=== PATIENT | female | born 1945 | race Caucasian/White ===

== ENCOUNTER 2017-01-14 13:37 | Emergency (ER) | payer MEDICARE, OTHER ==
[~2017-01-14] VITALS: Ht 165.1 cm; Wt 65.8 kg
[2017-01-14 13:51] LABS: BASOPHILS # (AUTO) 0.2 /CMM (0.0-0.2); BASOPHILS % (AUTO) 2.7 % (0.0-2.0); EOSINOPHILS # (AUTO) 0.1 /CMM (0.0-0.7); EOSINOPHILS % (AUTO) 1.3 % (0.0-6.0); HEMATOCRIT 43 % (33-45); HEMOGLOBIN 14.4 g/dL (11.5-14.8); LYMPHOCYTES # (AUTO) 2.8 /CMM (0.8-4.8); LYMPHOCYTES % (AUTO) 30.8 % (20.0-44.0); MEAN CORPUSCULAR HEMOGLOBIN 29 PG (26.0-33.0); MEAN CORPUSCULAR HGB CONC 34 g/dl (31.0-36.0); MEAN CORPUSCULAR VOLUME 87 fL (82-100); MONOCYTES # (AUTO) 0.5 /CMM (0.1-1.30); MONOCYTES % (AUTO) 5.3 % (2.0-12.0); NEUTROPHILS # (AUTO) 5.5 /CMM (1.8-8.9); NEUTROPHILS % (AUTO) 59.9 % (43.0-81.0); PLATELET COUNT (AUTO) 228 /CMM (150-450); RED BLOOD CELL COUNT(AUTO) 4.89 MIL/uL (4.0-5.2); WHITE BLOOD COUNT (AUTO) 9.1 K/uL (4.3-11.0)
[2017-01-14] MEDS ORDERED: ASPIRIN 325 MG TABLET ONE (13:58)
[2017-01-14] MEDS ORDERED: NITROGLYCERIN PACKET 1 GM PACKET ONE (13:59)
[2017-01-14] MEDS ORDERED: NITROGLYCERIN PACKET 1 GM PACKET TD ONE (14:00)
[2017-01-14] MEDS ORDERED: ASPIRIN 325 MG TABLET PO ONE (14:00)
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
[2017-01-14 14:01] LABS: CALCIUM, SERUM 9.6 mg/dL (8.5-10.1); CREATININE 0.8 mg/dL (0.6-1.3); POTASSIUM 3.8 mmol/L (3.5-5.1)
[2017-01-14 14:05] LABS: INR 1.03 (0.87-1.13); PROTHROMBIN TIME 10.7 SECS (9.5-12.7)
[2017-01-14 14:07] LABS: ALBUMIN 3.8 g/dL (3.4-5.0); BILIRUBIN,DIRECT 0.1 mg/dL (0.0-0.2); BILIRUBIN,TOTAL 0.4 mg/dL (0.2-1.0); TOTAL PROTEIN, SERUM 8.1 g/dL (6.4-8.2)
[2017-01-14 14:09] LABS: TROPONIN I 0.252 ng/mL (0.00-0.056)
[2017-01-14] MEDS ORDERED: FLUT1DIS3 INH (14:47)
[2017-01-14] MEDS ORDERED: DRON400T2 PO (14:47)
[2017-01-14] MEDS ORDERED: DEXL60CA3 PO (14:47)
[2017-01-14] MEDS ORDERED: NEBI5TAB8 PO (14:47)
[2017-01-14] MEDS ORDERED: VORT10TA PO (14:47)
[2017-01-14] MEDS ORDERED: LIPA1CAP15 PO (14:47)
[2017-01-14] MEDS ORDERED: ICOS1CAP PO (14:47)
[2017-01-14] MEDS ORDERED: VALS1TAB4 PO (14:47)
[2017-01-14] MEDS ORDERED: EDARBYCLOR PO (14:47)
[2017-01-14] MEDS ORDERED: FURO20TA4 PO (14:47)
[2017-01-14] MEDS ORDERED: ATOR10TA PO (14:47)
--- NOTE | 2017-01-14 15:05 | NUR ---
PT C/O MENDOZA WORSENING. OFFERED PAIN MEDICATION; PT REFUSES.
--- NOTE | 2017-01-14 15:51 | NUR ---
Patient does not wish to proceed with medical care recommended by Dr. WHITE. With daughter as gore inserter, patient given information related to possible complications, up to and including , which could occur as a result of leaving the hospital at this time. Patient verbalizes understanding of risks involved due to leaving against medical advice. Patient has signed AMA form.
[2017-01-14 15:57] VITALS: BP 134/75
[2017-01-14] MEDS ORDERED: DOCUSATE SODIUM 100 MG CAPSULE PO PRN (16:00)
[2017-01-14] MEDS ORDERED: MORPHINE SULFATE INJ 2 MG/ML DISP.SYRIN IV PRN (16:00)
[2017-01-14] MEDS ORDERED: ATORVASTATIN 10 MG TABLET PO SCH (16:00)
[2017-01-14] MEDS ORDERED: CLOPIDOGREL BISULFATE 75 MG TABLET PO ONE (16:00)
[2017-01-14] MEDS ORDERED: FUROSEMIDE 20 MG TABLET PO SCH (16:00)
[2017-01-14] MEDS ORDERED: NITROGLYCERIN 0.4 MG/TAB BOTTLE SL PRN (16:00)
[2017-01-14] MEDS ORDERED: Medication Not On Formulary EA (Lipase/Protease/Amylase (Creon Dr 36,000 Units Capsule) PO SCH (16:00)
[2017-01-14] MEDS ORDERED: ONDANSETRON HCL/PF 4 MG/2 ML VIAL IVP PRN (16:00)
[2017-01-14] MEDS ORDERED: CARVEDILOL 6.25 MG TABLET PO SCH (16:00)
[2017-01-14] MEDS ORDERED: Medication Not On Formulary EA (Nebivolol Hcl (Bystolic) 5 MG) PO SCH (16:00)
--- NOTE | 2017-01-14 16:09 | NUR ---
PT AMBULATED FROM ER WITH STEADY GAIT. DECISION TO LEAVE AMA REVIEWED WITH PT AND DAUGHTER PRIOR TO LEAVING. ALL DIAGNOSTIC RESULTS PRINTED AND GIVEN TO PT.
[2017-01-14] MEDS ORDERED: Medication Not On Formulary EA (Icosapent Ethyl (Vascepa) 1 GM) PO SCH (17:00)
[2017-01-14] MEDS ORDERED: FLUTICASONE/SALMETEROL DISKUS IH SCH (17:00)
[2017-01-14] MEDS ORDERED: DRONEDARONE HYDROCHLORIDE 400 MG TABLET PO SCH (17:00)
== END 2017-01-14 16:26 | disposition left against medical advice (07) ==
LOC: ER 13:38
DX: R07.89 Other chest pain (principal); I10 Essential (primary) hypertension; I70.0 Atherosclerosis of aorta; J45.909 Unspecified asthma, uncomplicated; M79.671 Pain in right foot; Z88.6 Allergy status to analgesic agent; Z79.82 Long term (current) use of aspirin; Z95.0 Presence of cardiac pacemaker; Z96.89 Presence of other specified functional implants
CPT/HCPCS: 36415; 71010-TC; 73630-TC; 80048-TC; 80076-TC; 84484-TC; 85025-TC; 85730-TC; A4606; Z7610

== ENCOUNTER 2019-12-28 09:49 | Emergency (ER) | payer MEDICARE, OTHER ==
[~2019-12-28] VITALS: Ht 167.6 cm; Wt 76.7 kg
[~2019-12-28 09:49] MED LIST: ATOR10TA PO; DEXL60CA3 PO; DRON400T2 PO; EDARBYCLOR PO; FLUT1DIS3 INH; FURO20TA4 PO; ICOS1CAP PO; LIPA1CAP15 PO; NEBI5TAB8 PO; VALS1TAB4 PO; VORT10TA PO
--- NOTE | 2019-12-28 09:50 | NUR ---
PT BIB SELF C/O MID EPIGASTRIC PAIN STARTED THIS MORNING , PT IS AAOX4, NOT IN RESPIRATORY DISTRESS, HOOKED TO STUDENT SUCCESS ADVISOR, KEPT RESTED AND COMFORTABLE, WILL CONTINUE TO MONITOR.
--- NOTE | 2019-12-28 10:10 | NUR ---
PT SEEN AND EXAMINED BY .
[2019-12-28] MEDS ORDERED: ASPI-1152 PO (10:11)
[2019-12-28] MEDS ORDERED: MIRT15TA7 PO (10:11)
[2019-12-28] MEDS ORDERED: HYDR-4077 PO (10:11)
[2019-12-28] MEDS ORDERED: AMLO10TA7 PO (10:11)
[2019-12-28] MEDS ORDERED: TOLT4CAP14 PO (10:11)
[2019-12-28] MEDS ORDERED: ROSU5TAB13 PO (10:11)
[2019-12-28] MEDS ORDERED: POTA10CA43 PO (10:11)
[2019-12-28] MEDS ORDERED: CLON0.1T PO (10:11)
[2019-12-28] MEDS ORDERED: NITR0.4T48 PO (10:11)
[2019-12-28] MEDS ORDERED: FERR325T6 PO (10:11)
[2019-12-28] MEDS ORDERED: FLUT1BLS12 INH (10:11)
[2019-12-28] MEDS ORDERED: PANT40TA4 PO (10:11)
[2019-12-28] MEDS ORDERED: ALPR1TAB7 PO (10:11)
[2019-12-28] MEDS ORDERED: CYAN10006 IM (10:11)
[2019-12-28] MEDS ORDERED: ERGO500014 PO (10:11)
[2019-12-28] MEDS ORDERED: MONT10TA22 PO (10:11)
[2019-12-28] MEDS ORDERED: EDARBYCLOR PO (10:12)
[2019-12-28] MEDS ORDERED: ONDANSETRON HCL/PF 4 MG/2 ML VIAL ONE (10:19)
[2019-12-28] MEDS ORDERED: MORPHINE SULFATE INJ 2 MG/ML DISP.SYRIN ONE (10:19)
[2019-12-28 10:20] LABS: BASOPHILS # (AUTO) 0.1 /CMM (0.0-0.2); BASOPHILS % (AUTO) 1.3 % (0.0-2.0); EOSINOPHILS % (AUTO) 1.8 % (0.0-6.0); HEMATOCRIT 44 % (33-45); HEMOGLOBIN 14.7 g/dL (11.5-14.8); LYMPHOCYTES # (AUTO) 2.2 /CMM (0.8-4.8); LYMPHOCYTES % (AUTO) 34.3 % (20.0-44.0); MEAN CORPUSCULAR HGB CONC 34 g/dl (31.0-36.0); MEAN CORPUSCULAR VOLUME 89 fL (82-100); MONOCYTES # (AUTO) 0.5 /CMM (0.1-1.30); MONOCYTES % (AUTO) 8.2 % (2.0-12.0); NEUTROPHILS # (AUTO) 3.4 /CMM (1.8-8.9); NEUTROPHILS % (AUTO) 54.4 % (43.0-81.0); PLATELET COUNT (AUTO) 206 /CMM (150-450); RED BLOOD CELL COUNT(AUTO) 4.89 MIL/uL (4.0-5.2); WHITE BLOOD COUNT (AUTO) 6.3 K/uL (4.3-11.0)
--- NOTE | 2019-12-28 10:20 | NUR ---
PT IV LINE ESTABLISHED BLOOD DRAWN AND SENT TO LAB.
[2019-12-28] MEDS: MORPHINE SULFATE INJ 2 MG/ML DISP.SYRIN IV ONE (10:23)
[2019-12-28] MEDS: ONDANSETRON HCL/PF 4 MG/2 ML VIAL IVP ONE (10:23)
[2019-12-28 10:27] LABS: CALCIUM, SERUM 9.7 mg/dL (8.5-10.1); CARBON DIOXIDE 30 mmol/L (21-32); CHLORIDE 101 mmol/L (98-107); CREATININE 0.9 mg/dL (0.6-1.3); GLUCOSE 97 mg/dL (74-106); POTASSIUM 3.4 mmol/L (3.5-5.1); SODIUM SERUM 142 mmol/L (136-145); UREA NITROGEN, BLOOD 15 mg/dL (7-18)
[2019-12-28 10:33] LABS: ALANINE AMINOTRANSFERASE 20 U/L (12-78); ALBUMIN 3.9 g/dL (3.4-5.0); ALKALINE PHOSPHATASE 68 U/L (46-116); ASPARTATE AMINOTRANSFERASE 21 U/L (15-37); BILIRUBIN,DIRECT 0.1 mg/dL (0.0-0.2); BILIRUBIN,TOTAL 0.7 mg/dL (0.2-1.0); LIPASE 143 U/L (73-393); TOTAL PROTEIN, SERUM 7.8 g/dL (6.4-8.2)
--- NOTE | 2019-12-28 12:20 | NUR ---
Dr. Gamboa [phone]
--- NOTE | 2019-12-28 12:49 | NUR ---
Patient discharged to home in stable condition. Written and verbal after care instructions given. Patient verbalizes understanding of instruction.IV removed. Catheter intact and site benign. Pressure and 4x4 applied to site. No bleeding noted. Pt ambulatory with a steady gait
[2019-12-28 12:50] VITALS: BP 137/64
== END 2019-12-28 12:51 | disposition home or self-care (01) ==
LOC: ER 09:53
DX: R10.13 Epigastric pain (principal); I10 Essential (primary) hypertension; J45.909 Unspecified asthma, uncomplicated; Z95.0 Presence of cardiac pacemaker; Z88.6 Allergy status to analgesic agent; Z79.899 Other long term (current) drug therapy
CPT/HCPCS: 36415; 71045; 74176; 80048; 80076; 83690; 84484; 85025; 93005; 96374; 96375; 99285; J2270; J2405